=== PATIENT | female | born 1980 | race Caucasian/White ===

== ENCOUNTER 2016-10-27 15:08 | Inpatient (IN) | payer OTHER ==
[~2016-10-27] VITALS: Ht 162.6 cm; Wt 96.4 kg
[~2016-10-27 15:08] MED LIST: BP MEDICINE; CHLORDIAZEPOXID25 MG PO; CLONAZEPAM0.5 MG PO; FOLIC ACID1 MG PO; HYDROCHLOROTH12.5 M3 PO; LEVAQUIN750 MG PO; LIBRIUM10 MG PO; METOPROLOL SUCC25 MG PO; METOPROLOL TART25 MG PO; MILK THISTLE500 MG PO; MOBIC7.5 MG PO; NEURONTIN100 MG PO; NICOTINE PATCH1 EAC2 TD; PERCOCET 5/31 TABLET PO; PHENERGAN-CODE120 ML PO; PRINIVIL5 MG PO; PROTONIX40 MG PO; THERAGRAN1 TABLET PO; TORADOL10 MG PO; Thiamine,Vitamin B1 PO; ZOLOFT100 MG PO; ZOLOFT25 MG
[2016-10-27 15:50] LABS: HEMATOCRIT 32.2 % (36.0-46.0); MCH 40.2 PG (29.0-34.0); MCHC 34.5 G/DL (30.0-36.0); MCV 116.7 FL (83-99); MEAN PLAT.VOLUME 9.6 uM^3 (9.5-12.4); PLATELET COUNT 244 K/uL (156-360); RBC DIS.WIDTH-CV 15.4 % (11.8-14.6); RBC DIS.WIDTH-SD 66.4 % (39-53); RED BLOOD COUNT 2.76 M/uL (3.80-5.20); WHITE BLOOD COUNT 12.2 K/uL (4.1-10.2)
[2016-10-27 15:52] LABS: CHLORIDE 97 mEq/L (99-109); POTASSIUM 3.5 mEq/L (3.7-5.4); SODIUM 135 mEq/L (136-147)
[2016-10-27 15:54] LABS: GLUCOSE 111 mg/dL (70-99)
[2016-10-27 15:55] LABS: ANION GAP 16 MEQ/L (2-14)
[2016-10-27 15:58] LABS: GFR ESTIMATE (CALCULATED) > 59 mL/min/
[2016-10-27 15:59] LABS: UREA NITROGEN (BUN) 7 mg/dL (9-23)
[2016-10-27 16:07] LABS: QUANTITATIVE HCG < 4.0 MIU/ML
[2016-10-27 16:54] LABS: ADD MIUA? YES; BILIRUBIN MODERATE; BLOOD NEGATIVE; COLOR AMBER ((YELLOW)); GLUCOSE (STRIP) 50; KETONES NEGATIVE; LEUKOCYTES NEGATIVE; NITRITE NEGATIVE; PROTEIN (STRIP) 100; SPECIFIC GRAVITY 1.032 (1.000-1.030)
[2016-10-27 16:56] LABS: ALKALINE PHOSPHATASE 229 IU/L (3-129)
[2016-10-27 17:00] LABS: LIPASE 36 U/L (1.0-51.0)
[2016-10-27 17:07] LABS: BACTERIA RARE /HPF; EPITHELIAL CELLS 1+ /HPF; MUCUS 4+ /LPF; RED BLOOD CELLS NONE SEEN /HPF (0-5)
[2016-10-27 17:08] LABS: ICTOTEST POSITIVE
[2016-10-27] MEDS ORDERED: NICODERM CQ1 EAC2 TD (21:19)
[2016-10-27 22:25] LABS: TOTAL BILIRUBIN 8.5 mg/dL (0.0-1.0)
[2016-10-27 22:26] LABS: ALKALINE PHOSPHATASE 211 IU/L (3-129)
[2016-10-27 22:28] LABS: DIRECT BILIRUBIN 5.9 mg/dL (0.0-0.3)
[2016-10-27 22:33] LABS: INTER. NORMALIZED RATIO 1.5; PROTHROMBIN TIME 15.4 (9.2-11.2); PTT 33.9 (25-32)
[2016-10-28] VITALS (7 sets, daily range): BP systolic 104–126; BP diastolic 58–69
[2016-10-28 06:39] LABS: ALKALINE PHOSPHATASE 192 IU/L (3-129); ANION GAP 12 MEQ/L (2-14); CHLORIDE 101 MEQ/L (99-109); GFR ESTIMATE (CALCULATED) > 59 mL/min/; GLUCOSE 105 mg/dL (70-99); POTASSIUM 3.9 MEQ/L (3.7-5.4); SAMPLE HEMOLYSIS CHECK 0; SAMPLE ICTERIC CHECK 2; SAMPLE LIPEMIA CHECK 0; SODIUM 138 MEQ/L (136-147); TOTAL BILIRUBIN 7.9 MG/DL (0.0-1.0); UREA NITROGEN (BUN) 8 mg/dL (9-23)
[2016-10-28 06:48] LABS: EOSINOPHIL (%) 2.5 % (0-5); EOSINOPHIL COUNT 0.2 K/uL (0-0.3); HEMATOCRIT 25.8 % (36.0-46.0); IMMATURE GRANULOCYTE (%) 0.5 % (0.0-0.7); INSTRUMENT ABS NEUTROPHIL CT 5.4 K/uL; LYMPHOCYTE COUNT 1.4 K/uL (1.0-2.8); MCH 41.9 PG (29.0-34.0); MCHC 35.3 G/DL (30.0-36.0); MCV 118.9 FL (83-99); MEAN PLAT.VOLUME 9.7 uM^3 (9.5-12.4); MONOCYTE (%) 13.5 % (3-12); MONOCYTE COUNT 1.1 K/uL (0-0.8); NEUTROPHIL (%) 66.4 % (45-76); NEUTROPHIL COUNT 5.4 K/uL (1.8-6.4); PLATELET COUNT 193 K/uL (156-360); RBC DIS.WIDTH-CV 15.9 % (11.8-14.6); RBC DIS.WIDTH-SD 69.7 % (39-53); WHITE BLOOD COUNT 8.1 K/uL (4.1-10.2)
[2016-10-28 06:50] LABS: RED BLOOD COUNT 2.17 M/uL (3.80-5.20)
[2016-10-28 08:06] LABS: FERRITIN 186 NG/ML (10-291)
[2016-10-28 13:23] LABS: C DIFF TOXIN NEGATIVE (NEGATIVE); PROBE CHECK PASS; SPECIMEN PROCESSING CONTROL PASS
[2016-10-28 13:36] LABS: INTERNAL CONTROL VALID? YES
[2016-10-28 13:52] LABS: MAGNESIUM 2.1 mg/dl (1.3-2.7)
[2016-10-29 04:02] VITALS: BP 101/55
[2016-10-29 06:34] LABS: MCH 40.4 PG (29.0-34.0); MCHC 33.3 G/DL (30.0-36.0); MCV 121.1 FL (83-99); MEAN PLAT.VOLUME 9.7 uM^3 (9.5-12.4); PLATELET COUNT 195 K/uL (156-360); RBC DIS.WIDTH-CV 16.2 % (11.8-14.6); RBC DIS.WIDTH-SD 72.8 % (39-53); RED BLOOD COUNT 2.23 M/uL (3.80-5.20); WHITE BLOOD COUNT 7.7 K/uL (4.1-10.2)
[2016-10-29 07:14] LABS: ALKALINE PHOSPHATASE 180 IU/L (3-129); ANION GAP 10 MEQ/L (2-14); CHLORIDE 106 MEQ/L (99-109); GFR ESTIMATE (CALCULATED) > 59 mL/min/; GLUCOSE 95 mg/dL (70-99); POTASSIUM 3.8 MEQ/L (3.7-5.4); SAMPLE HEMOLYSIS CHECK 0; SAMPLE ICTERIC CHECK 2; SAMPLE LIPEMIA CHECK 0; SODIUM 140 MEQ/L (136-147); TOTAL BILIRUBIN 7.4 MG/DL (0.0-1.0); UREA NITROGEN (BUN) 10 mg/dL (9-23)
[2016-10-29 07:54] VITALS: BP 109/63
[2016-10-29 08:52] LABS: FERRITIN 171 NG/ML (10-291)
[2016-10-29 11:05] LABS: TYPE OF FLUID PARACENTESIS
[2016-10-29 11:36] LABS: BODY FLUID PROTEIN < 3 G/DL
[2016-10-29 12:04] LABS: INTERNAL CONTROL VALID? YES
[2016-10-29 12:09] LABS: BODY FLUID EOSINOPHILS 1 % (0-25); BODY FLUID RBC'S 2000 /MM^3 (0-100); BODY FLUID WBC'S 157 /MM^3 (0-500); MONONUCLEAR WBC'S 98 %; POLYNUCLEAR WBC'S 1 % (0-25)
[2016-10-29 17:04] VITALS: BP 116/72
[2016-10-29 23:53] VITALS: BP 114/69
[2016-10-30 06:34] LABS: EOSINOPHIL (%) 2.8 % (0-5); EOSINOPHIL COUNT 0.2 K/uL (0-0.3); HEMATOCRIT 27.3 % (36.0-46.0); IMMATURE GRANULOCYTE (%) 0.5 % (0.0-0.7); INSTRUMENT ABS NEUTROPHIL CT 4.9 K/uL; LYMPHOCYTE COUNT 1.6 K/uL (1.0-2.8); MCH 42.1 PG (29.0-34.0); MCHC 34.1 G/DL (30.0-36.0); MCV 123.5 FL (83-99); MEAN PLAT.VOLUME 9.7 uM^3 (9.5-12.4); MONOCYTE (%) 12.6 % (3-12); NEUTROPHIL (%) 63.3 % (45-76); NEUTROPHIL COUNT 4.9 K/uL (1.8-6.4); PLATELET COUNT 188 K/uL (156-360); RBC DIS.WIDTH-CV 16.6 % (11.8-14.6); RBC DIS.WIDTH-SD 75.4 % (39-53); RED BLOOD COUNT 2.21 M/uL (3.80-5.20); WHITE BLOOD COUNT 7.7 K/uL (4.1-10.2)
[2016-10-30 06:59] LABS: ALKALINE PHOSPHATASE 161 IU/L (3-129); ANION GAP 7 MEQ/L (2-14); CHLORIDE 105 MEQ/L (99-109); GFR ESTIMATE (CALCULATED) > 59 mL/min/; GLUCOSE 100 mg/dL (70-99); POTASSIUM 3.6 MEQ/L (3.7-5.4); SAMPLE HEMOLYSIS CHECK 0; SAMPLE ICTERIC CHECK 2; SAMPLE LIPEMIA CHECK 0; SODIUM 138 MEQ/L (136-147); TOTAL BILIRUBIN 7.3 MG/DL (0.0-1.0); UREA NITROGEN (BUN) 10 mg/dL (9-23)
[2016-10-30] MEDS ORDERED: FOLIC ACID1 MG PO (07:28)
[2016-10-30] MEDS ORDERED: Thiamine,Vitamin B1 PO (07:29)
[2016-10-30 07:49] VITALS: BP 105/58
[2016-10-30 15:19] VITALS: BP 132/72
[2016-10-30 18:07] LABS: ANTI-SMOOTH MUSCLE (Actin)+ <20 U (<20)
[2016-10-30 23:13] LABS: MITOCHONDRIAL (M2) ANTIBODIES+ <=20.0 U (<=20.0)
[2016-10-31 00:07] VITALS: BP 104/57
[2016-10-31 07:46] LABS: INTER. NORMALIZED RATIO 1.5; PROTHROMBIN TIME 15.1 (9.2-11.2); PTT 36.1 (25-32)
[2016-10-31 07:53] LABS: ALKALINE PHOSPHATASE 202 IU/L (3-129); ANION GAP 12 MEQ/L (2-14); CHLORIDE 103 MEQ/L (99-109); GFR ESTIMATE (CALCULATED) > 59 mL/min/; GLUCOSE 98 mg/dL (70-99); POTASSIUM 3.8 MEQ/L (3.7-5.4); SAMPLE HEMOLYSIS CHECK 0; SAMPLE ICTERIC CHECK 2; SAMPLE LIPEMIA CHECK 0; SODIUM 138 MEQ/L (136-147); TOTAL BILIRUBIN 10.6 MG/DL (0.0-1.0); UREA NITROGEN (BUN) 10 mg/dL (9-23)
[2016-10-31 08:05] LABS: HEMATOCRIT 31.3 % (36.0-46.0); MCH 42.2 PG (29.0-34.0); MCHC 33.9 G/DL (30.0-36.0); MCV 124.7 FL (83-99); MEAN PLAT.VOLUME 9.9 uM^3 (9.5-12.4); RBC DIS.WIDTH-CV 16.2 % (11.8-14.6); RBC DIS.WIDTH-SD 75.6 % (39-53); RED BLOOD COUNT 2.51 M/uL (3.80-5.20); WHITE BLOOD COUNT 10.6 K/uL (4.1-10.2)
[2016-10-31 08:06] LABS: PLATELET COUNT 256 K/uL (156-360)
[2016-10-31 08:35] VITALS: BP 108/63
[2016-10-31] MEDS ORDERED: LORAZEPAM0.5 MG PO (13:13)
[2016-10-31] MEDS ORDERED: AUGMENTIN875 MG PO (13:13)
[2016-10-31 15:17] VITALS: BP 104/58
[2016-11-01] VITALS: BP 101/61
[2016-11-01 06:21] LABS: HEMATOCRIT 27.1 % (36.0-46.0); MCH 41.8 PG (29.0-34.0); MCHC 33.9 G/DL (30.0-36.0); MCV 123.2 FL (83-99); MEAN PLAT.VOLUME 9.8 uM^3 (9.5-12.4); PLATELET COUNT 204 K/uL (156-360); RBC DIS.WIDTH-CV 15.9 % (11.8-14.6); RBC DIS.WIDTH-SD 71.6 % (39-53); WHITE BLOOD COUNT 8.2 K/uL (4.1-10.2)
[2016-11-01 06:44] LABS: ANION GAP 10 MEQ/L (2-14); CHLORIDE 105 MEQ/L (99-109); GFR ESTIMATE (CALCULATED) > 59 mL/min/; GLUCOSE 92 mg/dL (70-99); SAMPLE HEMOLYSIS CHECK 0; SAMPLE ICTERIC CHECK 2; SAMPLE LIPEMIA CHECK 0; SODIUM 139 MEQ/L (136-147); UREA NITROGEN (BUN) 14 mg/dL (9-23)
[2016-11-01 08:07] VITALS: BP 112/66
[2016-11-01] MEDS ORDERED: ALDACTONE100 MG PO (11:29)
[2016-11-01] MEDS ORDERED: GENERLAC10 GM/15 M PO (11:34)
[2016-11-01 16:06] VITALS: BP 114/62
[2016-11-02 00:01] VITALS: BP 85/52
[2016-11-02 08:10] VITALS: BP 109/58
[2016-11-02] MEDS ORDERED: CIPROFLOXACIN500 M1 PO ×2 (13:35→16:04)
[2016-11-02] MEDS ORDERED: LASIX40 MG PO ×2 (13:40→16:04)
[2016-11-02] MEDS ORDERED: AUGMENTIN875 MG PO (16:04)
[2016-11-02] MEDS ORDERED: ALDACTONE100 MG PO (16:04)
[2016-11-02] MEDS ORDERED: LORAZEPAM0.5 MG PO (16:04)
[2016-11-02] MEDS ORDERED: GENERLAC10 GM/15 M PO (16:04)
== END 2016-11-02 17:20 | disposition home or self-care (01) | DRG 433 ==
LOC: EME 15:08 → 5SOUTH 21:15 → EDOF 21:15 → 5SOUTH 23:38
PROVIDERS: Internal Medicine; Internal Medicine Gastroenterology
DX: K70.11 Alcoholic hepatitis with ascites (principal); E87.1 Hypo-osmolality and hyponatremia; E87.6 Hypokalemia; E87.2 Acidosis; E66.9 Obesity, unspecified; R65.10 Systemic inflammatory response syndrome (SIRS) of non-infectious origin without acute organ dysfunction; K44.9 Diaphragmatic hernia without obstruction or gangrene; K29.60 Other gastritis without bleeding; K76.6 Portal hypertension; Z68.33 Body mass index [BMI] 33.0-33.9, adult; I10 Essential (primary) hypertension; F41.9 Anxiety disorder, unspecified; K21.9 Gastro-esophageal reflux disease without esophagitis; K64.8 Other hemorrhoids; F17.210 Nicotine dependence, cigarettes, uncomplicated; F10.239 Alcohol dependence with withdrawal, unspecified; F32.9 Major depressive disorder, single episode, unspecified; K76.0 Fatty (change of) liver, not elsewhere classified; D12.2 Benign neoplasm of ascending colon; D68.9 Coagulation defect, unspecified; D64.9 Anemia, unspecified; K70.31 Alcoholic cirrhosis of liver with ascites
CPT/HCPCS: 74177; 76705; 80048; 80053; 80069; 80076; 80202; 81003; 82105 90; 82140; 82272; 82607; 82728; 82746; 83516 90; 83605; 83630; 83690; 83735; 84075; 84157; 84443; 84450; 84460; 84702; 85025; 85027; 85610; 85730; 86038; 86256 90; 86900; 86901; 87040; 87070; 87177; 87205; 87493; 87506; 88305; 88313; 88342 TC; 89051; 99281; 99285; J1644; J1940; J2060; J2250; J2543; J3370; J3411; J3475; J7030; J7050

== ENCOUNTER 2016-11-19 19:16 | Inpatient (IN) | payer OTHER ==
[~2016-11-19] VITALS: Ht 162.6 cm; Wt 86.8 kg
[~2016-11-19 19:16] MED LIST changes: +ALDACTONE100 MG PO; +AUGMENTIN875 MG PO; +CIPROFLOXACIN500 M1 PO; +GENERLAC10 GM/15 M PO; +LASIX40 MG PO; +LORAZEPAM0.5 MG PO; +NICODERM CQ1 EAC2 TD
[2016-11-19 20:51] LABS: CHLORIDE 98 mEq/L (99-109); POTASSIUM 4.2 mEq/L (3.7-5.4); SODIUM 131 mEq/L (136-147)
[2016-11-19 20:53] LABS: GLUCOSE 133 mg/dL (70-99)
[2016-11-19 20:54] LABS: ANION GAP 9 MEQ/L (2-14); HEMATOCRIT 30.7 % (36.0-46.0); MCH 36.7 PG (29.0-34.0); MCHC 32.2 G/DL (30.0-36.0); MEAN PLAT.VOLUME 9.4 uM^3 (9.5-12.4); RBC DIS.WIDTH-CV 13.1 % (11.8-14.6); RBC DIS.WIDTH-SD 54.1 % (39-53); WHITE BLOOD COUNT 12.4 K/uL (4.1-10.2)
[2016-11-19 20:57] LABS: GFR ESTIMATE (CALCULATED) > 59 mL/min/; UREA NITROGEN (BUN) 9 mg/dL (9-23)
[2016-11-19 21:00] LABS: MCV 113.7 FL (83-99); PLATELET COUNT 280 K/uL (156-360)
[2016-11-19 21:09] LABS: QUANTITATIVE HCG < 4.0 MIU/ML
[2016-11-19 23:58] LABS: TOTAL BILIRUBIN 16.5 mg/dL (0.0-1.0)
[2016-11-19 23:59] LABS: ALKALINE PHOSPHATASE 178 IU/L (3-129)
[2016-11-20 00:02] LABS: DIRECT BILIRUBIN 11.2 mg/dL (0.0-0.3)
[2016-11-20 00:56] LABS: INTER. NORMALIZED RATIO 1.5; PROTHROMBIN TIME 15.9 (9.2-11.2)
[2016-11-20] MEDS ORDERED: ALDACTONE100 MG PO (04:09)
[2016-11-20] MEDS ORDERED: SPIRONOLACTONE100 MG PO (04:11)
[2016-11-20 05:25] LABS: CHLORIDE 102 mEq/L (99-109); POTASSIUM 4.4 mEq/L (3.7-5.4); SODIUM 132 mEq/L (136-147)
[2016-11-20 05:26] LABS: GLUCOSE 111 mg/dL (70-99)
[2016-11-20 05:28] LABS: ANION GAP 6 MEQ/L (2-14)
[2016-11-20 05:30] LABS: GFR ESTIMATE (CALCULATED) > 59 mL/min/
[2016-11-20 05:31] LABS: UREA NITROGEN (BUN) 10 mg/dL (9-23)
[2016-11-20 05:32] LABS: HEMATOCRIT 25.7 % (36.0-46.0); MCHC 32.7 G/DL (30.0-36.0); MCV 113.2 FL (83-99); MEAN PLAT.VOLUME 9.3 uM^3 (9.5-12.4); PLATELET COUNT 223 K/uL (156-360); RBC DIS.WIDTH-CV 13.2 % (11.8-14.6); RBC DIS.WIDTH-SD 54.6 % (39-53); RED BLOOD COUNT 2.27 M/uL (3.80-5.20); WHITE BLOOD COUNT 10.7 K/uL (4.1-10.2)
[2016-11-20 08:45] LABS: ADD MIUA? YES; BILIRUBIN MODERATE; BLOOD NEGATIVE; COLOR AMBER ((YELLOW)); GLUCOSE (STRIP) NEGATIVE; KETONES NEGATIVE; LEUKOCYTES NEGATIVE; NITRITE NEGATIVE; PROTEIN (STRIP) NEGATIVE; SPECIFIC GRAVITY 1.013 (1.000-1.030)
[2016-11-20 08:59] LABS: CASTS PRESENT /LPF; EPITHELIAL CELLS 2+ /HPF; HYALINE CASTS 0-5 /LPF; MUCUS 1+ /LPF
[2016-11-20 09:00] LABS: BACTERIA 1+ /HPF; RED BLOOD CELLS 0-5 /HPF (0-5); WHITE BLOOD CELLS 0-5 /HPF (0-5)
[2016-11-20 09:12] LABS: ICTOTEST POSITIVE
[2016-11-20 11:15] LABS: HEMATOCRIT 29.4 % (36.0-46.0); MCV 114.4 FL (83-99)
[2016-11-20 12:39] VITALS: BP 119/68
[2016-11-20 12:52] VITALS: BP 119/68
[2016-11-20 15:42] VITALS: BP 122/76
[2016-11-21 00:34] VITALS: BP 109/57
[2016-11-21 07:02] LABS: HEMATOCRIT 28.2 % (36.0-46.0); MCH 38.1 PG (29.0-34.0); MCHC 33.3 G/DL (30.0-36.0); MCV 114.2 FL (83-99); MEAN PLAT.VOLUME 9.4 uM^3 (9.5-12.4); PLATELET COUNT 227 K/uL (156-360); RBC DIS.WIDTH-CV 13.2 % (11.8-14.6); RBC DIS.WIDTH-SD 54.6 % (39-53); RED BLOOD COUNT 2.47 M/uL (3.80-5.20); WHITE BLOOD COUNT 10.1 K/uL (4.1-10.2)
[2016-11-21 07:11] LABS: INTER. NORMALIZED RATIO 1.6; PROTHROMBIN TIME 16.5 (9.2-11.2); PTT 36.6 (25-32)
[2016-11-21 07:22] LABS: ALKALINE PHOSPHATASE 159 IU/L (3-129); ANION GAP 11 MEQ/L (2-14); CHLORIDE 100 MEQ/L (99-109); GFR ESTIMATE (CALCULATED) > 59 mL/min/; MAGNESIUM 1.9 mg/dl (1.3-2.7); POTASSIUM 4.2 MEQ/L (3.7-5.4); SAMPLE HEMOLYSIS CHECK 0; SAMPLE ICTERIC CHECK 3; SAMPLE LIPEMIA CHECK 0; SODIUM 135 MEQ/L (136-147); UREA NITROGEN (BUN) 10 mg/dL (9-23)
[2016-11-21 07:23] LABS: GLUCOSE 82 mg/dL (70-99)
== END 2016-11-21 12:12 | disposition short-term general hospital (02) | DRG 433 ==
LOC: EME 19:16 → EDOF 11-20 03:22 → 5EAST 11-20 12:26
PROVIDERS: Hospitalist; Internal Medicine
DX: K70.31 Alcoholic cirrhosis of liver with ascites (principal); Z68.32 Body mass index [BMI] 32.0-32.9, adult; K72.90 Hepatic failure, unspecified without coma; K76.6 Portal hypertension; R16.1 Splenomegaly, not elsewhere classified; D12.3 Benign neoplasm of transverse colon; D12.2 Benign neoplasm of ascending colon; D53.9 Nutritional anemia, unspecified; F17.210 Nicotine dependence, cigarettes, uncomplicated; F32.9 Major depressive disorder, single episode, unspecified; I10 Essential (primary) hypertension; J45.909 Unspecified asthma, uncomplicated; K21.9 Gastro-esophageal reflux disease without esophagitis; K29.60 Other gastritis without bleeding; K44.9 Diaphragmatic hernia without obstruction or gangrene; K64.8 Other hemorrhoids; L29.9 Pruritus, unspecified; R60.9 Edema, unspecified; K92.1 Melena; R00.0 Tachycardia, unspecified; R19.7 Diarrhea, unspecified; E66.9 Obesity, unspecified
CPT/HCPCS: 80048; 80053; 80076; 81003; 82140; 83735; 84100; 84702; 85014; 85018; 85027; 85610; 85730; 86900; 86901; 99281; 99285; J7030

== ENCOUNTER 2016-12-30 13:56 | Inpatient (IN) | payer OTHER ==
[~2016-12-30] VITALS: Ht 162.6 cm; Wt 84.0 kg
[~2016-12-30 13:56] MED LIST changes: +SPIRONOLACTONE100 MG PO
[2016-12-30 14:58] LABS: HEMATOCRIT 33.7 % (36.0-46.0); MCH 32.8 PG (29.0-34.0); MCHC 32.3 G/DL (30.0-36.0); MCV 101.5 FL (83-99); PLATELET COUNT 102 K/uL (156-360); RBC DIS.WIDTH-CV 13.1 % (11.8-14.6); RBC DIS.WIDTH-SD 48.8 % (39-53); RED BLOOD COUNT 3.32 M/uL (3.80-5.20); WHITE BLOOD COUNT 7.8 K/uL (4.1-10.2)
[2016-12-30 15:06] LABS: CHLORIDE 101 mEq/L (99-109); POTASSIUM 3.6 mEq/L (3.7-5.4); SODIUM 135 mEq/L (136-147)
[2016-12-30 15:09] LABS: GLUCOSE 121 mg/dL (70-99)
[2016-12-30 15:10] LABS: ANION GAP 12 MEQ/L (2-14)
[2016-12-30 15:11] LABS: TOTAL BILIRUBIN 6.4 mg/dL (0.0-1.0)
[2016-12-30 15:12] LABS: ALKALINE PHOSPHATASE 127 IU/L (3-129)
[2016-12-30 15:13] LABS: GFR ESTIMATE (CALCULATED) > 59 mL/min/
[2016-12-30 15:14] LABS: UREA NITROGEN (BUN) 11 mg/dL (9-23)
[2016-12-30 15:20] LABS: LIPASE 19 U/L (1.0-51.0)
[2016-12-30 15:53] LABS: INTER. NORMALIZED RATIO 1.5; PROTHROMBIN TIME 16.6 SEC (10.2-12.9)
[2016-12-30 15:55] LABS: PTT 34.3 SEC (25-37)
[2016-12-30 16:07] LABS: QUANTITATIVE HCG < 4.0 MIU/ML
[2016-12-30] MEDS ORDERED: VITAMIN B-1100 MG PO (20:20)
[2016-12-30] MEDS ORDERED: LASIX40 MG PO (20:21)
[2016-12-30] MEDS ORDERED: ALDACTONE100 MG PO (20:21)
[2016-12-30] MEDS ORDERED: ULTRAM50 MG PO (20:21)
[2016-12-30] MEDS ORDERED: VISINE ADVANCED15 ML BOTH EYES (20:22)
[2016-12-30] MEDS ORDERED: LACTULOSE10 GM/151 PO (20:23)
[2016-12-30 22:32] LABS: MAGNESIUM 1.4 mg/dL (1.3-2.7)
[2016-12-30 22:36] LABS: SERUM ETHYL ALCOHOL < 10 mg/dL
[2016-12-31] VITALS (8 sets, daily range): BP systolic 109–133; BP diastolic 56–65
[2016-12-31 05:25] LABS: ADD MIUA? YES; BILIRUBIN SMALL; BLOOD NEGATIVE; COLOR AMBER ((YELLOW)); GLUCOSE (STRIP) NEGATIVE; KETONES NEGATIVE; LEUKOCYTES NEGATIVE; NITRITE NEGATIVE; PROTEIN (STRIP) 30; SPECIFIC GRAVITY 1.034 (1.000-1.030)
[2016-12-31 05:41] LABS: HEMATOCRIT 26.4 % (36.0-46.0); MCH 33.5 PG (29.0-34.0); MCHC 32.6 G/DL (30.0-36.0); MCV 102.7 FL (83-99); MEAN PLAT.VOLUME 9.1 uM^3 (9.5-12.4); PLATELET COUNT 85 K/uL (156-360); RBC DIS.WIDTH-CV 13.3 % (11.8-14.6); RBC DIS.WIDTH-SD 49.7 % (39-53); RED BLOOD COUNT 2.57 M/uL (3.80-5.20); WHITE BLOOD COUNT 7.2 K/uL (4.1-10.2)
[2016-12-31 06:05] LABS: BACTERIA NONE SEEN /HPF; EPITHELIAL CELLS 2+ /HPF; MUCUS TRACE /LPF; RED BLOOD CELLS 0-5 /HPF (0-5); UCUL ADDED? NO; WHITE BLOOD CELLS 0-5 /HPF (0-5)
[2016-12-31 07:12] LABS: ANION GAP 12 MEQ/L (2-14); CHLORIDE 110 MEQ/L (99-109); GFR ESTIMATE (CALCULATED) > 59 mL/min/; GLUCOSE 103 mg/dL (70-99); POTASSIUM 3.6 MEQ/L (3.7-5.4); SAMPLE HEMOLYSIS CHECK 0; SAMPLE ICTERIC CHECK 1; SAMPLE LIPEMIA CHECK 0; SODIUM 139 MEQ/L (136-147); UREA NITROGEN (BUN) 11 mg/dL (9-23)
[2016-12-31 08:02] LABS: ALKALINE PHOSPHATASE 83 IU/L (3-129); DIRECT BILIRUBIN 2.1 mg/dL (0.0-0.3); TOTAL BILIRUBIN 4.6 MG/DL (0.0-1.0)
[2017-01-01 00:44] LABS: INTERNAL CONTROL VALID? YES
[2017-01-01 04:01] VITALS: BP 118/65
[2017-01-01 05:54] LABS: HEMATOCRIT 27.8 % (36.0-46.0); MCH 33.1 PG (29.0-34.0); MCV 103.3 FL (83-99); MEAN PLAT.VOLUME 9.2 uM^3 (9.5-12.4); NRBC (%) 0.4 /100 WBC (0-0); PLATELET COUNT 99 K/uL (156-360); RBC DIS.WIDTH-CV 13.8 % (11.8-14.6); RBC DIS.WIDTH-SD 51.9 % (39-53); RED BLOOD COUNT 2.69 M/uL (3.80-5.20); WHITE BLOOD COUNT 7.8 K/uL (4.1-10.2)
[2017-01-01 06:39] LABS: ANION GAP 10 MEQ/L (2-14); CHLORIDE 112 MEQ/L (99-109); GFR ESTIMATE (CALCULATED) > 59 mL/min/; GLUCOSE 107 mg/dL (70-99); IRON 30 MCG/DL (35-150); POTASSIUM 3.9 MEQ/L (3.7-5.4); SAMPLE HEMOLYSIS CHECK 0; SAMPLE ICTERIC CHECK 1; SAMPLE LIPEMIA CHECK 0; SODIUM 140 MEQ/L (136-147); UREA NITROGEN (BUN) 9 mg/dL (9-23)
[2017-01-01 07:24] VITALS: BP 121/56
[2017-01-01 07:58] LABS: INTERNAL CONTROL VALID? YES
[2017-01-01 08:02] LABS: FERRITIN 63 NG/ML (10-291)
[2017-01-01 11:02] VITALS: BP 127/65
[2017-01-01 15:15] VITALS: BP 109/53
[2017-01-01 19:51] VITALS: BP 124/65
[2017-01-01 23:26] VITALS: BP 122/68
[2017-01-02 03:18] VITALS: BP 124/68
[2017-01-02 06:55] LABS: EOSINOPHIL (%) 1.8 % (0-5); EOSINOPHIL COUNT 0.1 K/uL (0-0.3); HEMATOCRIT 28.6 % (36.0-46.0); IMMATURE GRANULOCYTE (%) 0.8 % (0.0-0.7); IMMATURE GRANULOCYTE COUNT 0.1 K/uL; INSTRUMENT ABS NEUTROPHIL CT 4.6 K/uL; LYMPHOCYTE COUNT 1.6 K/uL (1.0-2.8); MCH 34.2 PG (29.0-34.0); MCHC 33.2 G/DL (30.0-36.0); MCV 102.9 FL (83-99); MEAN PLAT.VOLUME 9.6 uM^3 (9.5-12.4); MONOCYTE COUNT 0.8 K/uL (0-0.8); NEUTROPHIL (%) 63.7 % (45-76); NEUTROPHIL COUNT 4.6 K/uL (1.8-6.4); PLATELET COUNT 97 K/uL (156-360); RBC DIS.WIDTH-CV 13.9 % (11.8-14.6); RBC DIS.WIDTH-SD 52.7 % (39-53); RED BLOOD COUNT 2.78 M/uL (3.80-5.20); WHITE BLOOD COUNT 7.2 K/uL (4.1-10.2)
[2017-01-02 07:22] LABS: ALKALINE PHOSPHATASE 100 IU/L (3-129); ANION GAP 10 MEQ/L (2-14); CHLORIDE 108 MEQ/L (99-109); GFR ESTIMATE (CALCULATED) > 59 mL/min/; GLUCOSE 88 mg/dL (70-99); POTASSIUM 3.2 MEQ/L (3.7-5.4); SAMPLE HEMOLYSIS CHECK 0; SAMPLE ICTERIC CHECK 2; SAMPLE LIPEMIA CHECK 0; SODIUM 140 MEQ/L (136-147); TOTAL BILIRUBIN 7.5 MG/DL (0.0-1.0); UREA NITROGEN (BUN) 15 mg/dL (9-23)
[2017-01-02 07:27] VITALS: BP 99/70
[2017-01-02 11:21] VITALS: BP 125/70
[2017-01-02 15:13] VITALS: BP 123/70
[2017-01-02 19:35] VITALS: BP 120/63
[2017-01-03] VITALS: BP 112/58
[2017-01-03 04:00] VITALS: BP 126/57
[2017-01-03 07:11] LABS: HEMATOCRIT 29.2 % (36.0-46.0); MCHC 32.5 G/DL (30.0-36.0); MCV 101.4 FL (83-99); MEAN PLAT.VOLUME 9.8 uM^3 (9.5-12.4); PLATELET COUNT 108 K/uL (156-360); RBC DIS.WIDTH-CV 13.8 % (11.8-14.6); RBC DIS.WIDTH-SD 51.3 % (39-53); RED BLOOD COUNT 2.88 M/uL (3.80-5.20)
[2017-01-03 07:23] VITALS: BP 106/64
[2017-01-03 07:29] LABS: ALKALINE PHOSPHATASE 121 IU/L (3-129); ANION GAP 13 MEQ/L (2-14); CHLORIDE 105 MEQ/L (99-109); DIRECT BILIRUBIN 3.9 mg/dL (0.0-0.3); GFR ESTIMATE (CALCULATED) > 59 mL/min/; POTASSIUM 3.7 MEQ/L (3.7-5.4); SAMPLE HEMOLYSIS CHECK 0; SAMPLE ICTERIC CHECK 2; SAMPLE LIPEMIA CHECK 0; SODIUM 137 MEQ/L (136-147); TOTAL BILIRUBIN 6.8 MG/DL (0.0-1.0); UREA NITROGEN (BUN) 19 mg/dL (9-23)
[2017-01-03 07:31] LABS: GLUCOSE 217 mg/dL (70-99)
[2017-01-03 08:34] LABS: ABS NEUTROPHIL COUNT 3.6; ANISOCYTOSIS 1+; BURR CELLS 2+; EOSINOPHIL ABS CT 0; INSTRUMENT ABS NEUTROPHIL CT 3.3 K/uL; LYMPHOCYTES 8.8 % (15.0-45.0); MACROCYTES 1+; PLAT.SUFFICIENCY DECREASED; POIKILOCYTOSIS 2+; SEG.NEUTROPHILS 91.2 % (46.0-76.0)
[2017-01-03 10:01] LABS: INTER. NORMALIZED RATIO 1.6; PROTHROMBIN TIME 18.1 SEC (10.2-12.9)
[2017-01-03 12:45] VITALS: BP 96/65
[2017-01-03 16:16] VITALS: BP 109/55
[2017-01-03 17:07] LABS: C DIFF TOXIN NEGATIVE (NEGATIVE)
[2017-01-03 18:03] LABS: PROBE CHECK PASS; SPECIMEN PROCESSING CONTROL PASS
[2017-01-04 00:02] VITALS: BP 114/56
[2017-01-04 08:19] VITALS: BP 105/56
[2017-01-04 09:00] LABS: EOSINOPHIL (%) 0 % (0-5); HEMATOCRIT 24.7 % (36.0-46.0); IMMATURE GRANULOCYTE (%) 1.5 % (0.0-0.7); IMMATURE GRANULOCYTE COUNT 0.1 K/uL; INSTRUMENT ABS NEUTROPHIL CT 6.7 K/uL; LYMPHOCYTE COUNT 1.2 K/uL (1.0-2.8); MCH 32.7 PG (29.0-34.0); MCHC 33.2 G/DL (30.0-36.0); MCV 98.4 FL (83-99); MONOCYTE (%) 7.1 % (3-12); MONOCYTE COUNT 0.6 K/uL (0-0.8); NEUTROPHIL (%) 77.1 % (45-76); NEUTROPHIL COUNT 6.7 K/uL (1.8-6.4); PLATELET COUNT 136 K/uL (156-360); RBC DIS.WIDTH-CV 13.8 % (11.8-14.6); RBC DIS.WIDTH-SD 49.3 % (39-53); RED BLOOD COUNT 2.51 M/uL (3.80-5.20); WHITE BLOOD COUNT 8.7 K/uL (4.1-10.2)
[2017-01-04 09:05] LABS: INTER. NORMALIZED RATIO 1.5; PROTHROMBIN TIME 17.3 SEC (10.2-12.9)
[2017-01-04 09:30] LABS: ALKALINE PHOSPHATASE 105 IU/L (3-129); ANION GAP 10 MEQ/L (2-14); CHLORIDE 109 MEQ/L (99-109); GFR ESTIMATE (CALCULATED) > 59 mL/min/; GLUCOSE 122 mg/dL (70-99); POTASSIUM 3.5 MEQ/L (3.7-5.4); SAMPLE HEMOLYSIS CHECK 0; SAMPLE ICTERIC CHECK 1; SAMPLE LIPEMIA CHECK 0; SODIUM 142 MEQ/L (136-147); UREA NITROGEN (BUN) 25 mg/dL (9-23)
[2017-01-04 09:32] LABS: TOTAL BILIRUBIN 3.7 MG/DL (0.0-1.0)
[2017-01-04 12:40] LABS: MCH 33.6 PG (29.0-34.0); MCHC 33.8 G/DL (30.0-36.0); MCV 99.2 FL (83-99); PLATELET COUNT 157 K/uL (156-360); RBC DIS.WIDTH-CV 14.1 % (11.8-14.6); RBC DIS.WIDTH-SD 50.4 % (39-53); RED BLOOD COUNT 2.62 M/uL (3.80-5.20); WHITE BLOOD COUNT 9.1 K/uL (4.1-10.2)
[2017-01-04 16:07] VITALS: BP 127/62
[2017-01-04 23:49] VITALS: BP 107/58
[2017-01-05 06:01] LABS: EOSINOPHIL (%) 0 % (0-5); HEMATOCRIT 25.2 % (36.0-46.0); IMMATURE GRANULOCYTE (%) 1.2 % (0.0-0.7); IMMATURE GRANULOCYTE COUNT 0.1 K/uL; INSTRUMENT ABS NEUTROPHIL CT 7.6 K/uL; LYMPHOCYTE COUNT 1.4 K/uL (1.0-2.8); MCH 32.5 PG (29.0-34.0); MCHC 32.9 G/DL (30.0-36.0); MCV 98.8 FL (83-99); MEAN PLAT.VOLUME 9.7 uM^3 (9.5-12.4); MONOCYTE (%) 5.9 % (3-12); MONOCYTE COUNT 0.6 K/uL (0-0.8); NEUTROPHIL (%) 78.2 % (45-76); NEUTROPHIL COUNT 7.6 K/uL (1.8-6.4); PLATELET COUNT 166 K/uL (156-360); RBC DIS.WIDTH-CV 14.2 % (11.8-14.6); RBC DIS.WIDTH-SD 50.5 % (39-53); RED BLOOD COUNT 2.55 M/uL (3.80-5.20); WHITE BLOOD COUNT 9.8 K/uL (4.1-10.2)
[2017-01-05 06:35] LABS: INTER. NORMALIZED RATIO 1.6; PROTHROMBIN TIME 17.6 SEC (10.2-12.9)
[2017-01-05 06:36] LABS: ALKALINE PHOSPHATASE 111 IU/L (3-129); ANION GAP 7 MEQ/L (2-14); CHLORIDE 108 MEQ/L (99-109); GFR ESTIMATE (CALCULATED) > 59 mL/min/; GLUCOSE 124 mg/dL (70-99); SAMPLE HEMOLYSIS CHECK 0; SAMPLE ICTERIC CHECK 1; SAMPLE LIPEMIA CHECK 0; SODIUM 138 MEQ/L (136-147); TOTAL BILIRUBIN 3.5 MG/DL (0.0-1.0); UREA NITROGEN (BUN) 27 mg/dL (9-23)
[2017-01-05 06:38] LABS: POTASSIUM 4.6 MEQ/L (3.7-5.4)
[2017-01-05 07:35] VITALS: BP 106/58
[2017-01-05 15:24] VITALS: BP 113/60
[2017-01-05] MEDS ORDERED: MYCOSTATIN 100,60 ML PO (15:35)
[2017-01-05] MEDS ORDERED: NICOTINE PATCH1 EAC2 TD (15:36)
[2017-01-05] MEDS ORDERED: PROAIR RESPICL90 MCG IH (15:36)
[2017-01-05] MEDS ORDERED: SPIRONOLACTONE50 MG PO (15:36)
[2017-01-05] MEDS ORDERED: BENZONATATE100 MG PO (15:38)
[2017-01-05] MEDS ORDERED: LACTULOSE10 GM/151 PO (15:38)
[2017-01-05] MEDS ORDERED: PREDNISONE20 MG PO (15:38)
[2017-01-05] MEDS ORDERED: ULTRAM50 MG PO (15:43)
[2017-01-05] MEDS ORDERED: LORAZEPAM0.5 MG PO (15:43)
[2017-01-05] MEDS ORDERED: FLORASTOR250 MG PO (15:51)
[2017-01-05] MEDS ORDERED: LEVOFLOXACIN500 MG PO (15:51)
== END 2017-01-05 16:39 | disposition home or self-care (01) | DRG 871 ==
LOC: EME 13:56 → EDOF 21:36 → ENRESERV 21:37 → 5WEST 23:43 → 5SOUTH 12-31 07:27 → 5WEST 12-31 07:27 → ENRESERV 12-31 07:31 → 5SOUTH 12-31 16:34
PROVIDERS: Emergency Medicine; Hospitalist; Internal Medicine; Nurse Practitioner Adult Health; Nurse Practitioner Family
DX: A41.9 Sepsis, unspecified organism (principal); J96.01 Acute respiratory failure with hypoxia; R65.20 Severe sepsis without septic shock; K70.11 Alcoholic hepatitis with ascites; K70.31 Alcoholic cirrhosis of liver with ascites; E87.6 Hypokalemia; I81 Portal vein thrombosis; J18.9 Pneumonia, unspecified organism; J98.11 Atelectasis; K76.0 Fatty (change of) liver, not elsewhere classified; E87.1 Hypo-osmolality and hyponatremia; E86.0 Dehydration; E87.2 Acidosis; F17.210 Nicotine dependence, cigarettes, uncomplicated; G43.909 Migraine, unspecified, not intractable, without status migrainosus; I10 Essential (primary) hypertension; K76.6 Portal hypertension; J44.0 Chronic obstructive pulmonary disease with (acute) lower respiratory infection; F10.21 Alcohol dependence, in remission; D69.6 Thrombocytopenia, unspecified; D53.9 Nutritional anemia, unspecified; K70.0 Alcoholic fatty liver; E66.9 Obesity, unspecified; Z68.31 Body mass index [BMI] 31.0-31.9, adult; K21.9 Gastro-esophageal reflux disease without esophagitis; E88.09 Other disorders of plasma-protein metabolism, not elsewhere classified; K72.90 Hepatic failure, unspecified without coma; J81.1 Chronic pulmonary edema; R13.10 Dysphagia, unspecified; J44.1 Chronic obstructive pulmonary disease with (acute) exacerbation
CPT/HCPCS: 71010; 71020; 71250; 71275; 74176; 76705; 80048; 80053; 80076; 81003; 82140; 82272; 82607; 82728; 82746; 82948; 83540; 83605; 83690; 83735; 84443; 84466; 84702; 85025; 85027; 85379; 85610; 85730; 87040; 87070; 87205; 87449; 87493; 93306; 94010; 94640; 94640 76; 94667; 94668; 94799; 99202; 99281; 99285; G0378; G0480; J0456; J0692; J0696; J1650; J1885; J1940; J1956; J2405; J2543; J2765; J2930; J3370; J3411; J7030; J7050; J7512